=== PATIENT | male | born 1970 | race African-American/Black ===

== ENCOUNTER → 2018-03-15 | Outpatient (CLI) | payer OTHER ==
--- NOTE | 2018-03-15 16:00 | RADIOLOGY REPORT (SQ) ---
EXAM DESCRIPTION: MRI LT LOWER EXTREMITY COMBO COMPLETED DATE/TIME: 03/15/2018 2:44 pm REASON FOR STUDY: SWELLING/PAIN COMPARISON: None. TECHNIQUE: Multiplanar fat and fluid sensitive sequences precontrast including T1, T2 fat saturated or STIR. Post contrast T1 fat saturated sequences after IV gadolinium administration. The left tibi a and fibula is the area of interest CONTRAST TYPE AND DOSE: 15 mL Prohance. RENAL FUNCTION: None required. The patient is less than 50 years old. 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 Patient jumped off the top bunk of a bunk bed, with left lower extremity pain. There is no marrow edema worrisome for occult fracture. Enchondromas are present in the medullary space of the left proximal tibia, distal tibia, and calcane us. The distal tibial enchondroma measures 7 cm in greatest craniocaudad extent. Along ventral edge, pro ximally, there is a 7 x 8 mm focus of contrast enhancement on axial coronal and sagittal images. Thi s could indicate dedifferentiation of an enchondroma, with an area of more aggressive growth. Corre lation with bone scan to determine if there is increased uptake in this area is recommended. No contrast enhancement is present over the proximal tibial lesion or calcaneal lesion. IMPRESSION: No marrow signal abnormalities worrisome for occult fracture. There is a subcentimeter focus of contrast enhancement along the proximal and anterior aspect of the enchondroma in the distal left tibial metaphysis. Correlation with bone scan is recommended. TECHNICAL DOCUMENTATION: JOB ID: [id number] [employer]- All Rights Reserved Reading location - IP/workstation name: [email or web address]
== END ==
LOC: RAD 16:33
PROVIDERS: ATTEND Family Medicine
DX: M79.604 Pain in right leg (principal); M79.89 Other specified soft tissue disorders
CPT/HCPCS: 73720; A9576